=== PATIENT | female | born 1940 | race Caucasian/White ===

== ENCOUNTER 2017-04-12 16:29 | Emergency (ER) | payer MEDICARE ==
--- NOTE | 2017-04-12 17:06 | RADIOLOGY REPORT ---
Two views of the chest, without prior films for comparison, demonstrate the heart and vessels to be unremarkable. Lung sandy are clear. Incidentally noted is 25% anterior compression deformity of L1 of indeterminate age. IMPRESSION: 1. No acute cardiopulmonary abnormality is identified. 2. Compression deformity of L1 of indeterminate age. MTDD
[2017-04-12] MEDS ORDERED: IPRATROPIUM/ALBUTEROL 0.5/3 MG 3 ML AMPUL.NEB INHALATION ONE (17:11)
[2017-04-12] MEDS ORDERED: METHYLPREDNISOLONE SOD 125 MG/2 ML VIAL ONE (17:11)
[2017-04-12] MEDS ORDERED: MAGNESIUM SULFATE 1 GM/2 ML VIAL ONE (17:16)
[2017-04-12] MEDS ORDERED: KETOROLAC TROMETHAMINE 30 MG/ML VIAL ONE (17:18)
[2017-04-12] MEDS ORDERED: NORMAL SALINE 100 ML IV ONE (17:18)
--- NOTE | 2017-04-12 17:57 | ER NURSING DOCUMENTATION ---
Nurse's Notes [facility] Name:Radha Hdez Age:77 yrs Sex:Female :1940 Arrival Date:04/12/2017 Time:16:29 BedTrauma-C Private MD: Diagnosis:Esophageal Stricture;Wheezing Presentation: 04/12 16:32 Acuity: KATHERIN 2 st 16:48 Presenting complaint: Patient states: Pt swallowed a pill and it is stuck in her rh throat. Pt is able to speak in sentences and breath. Transition of care: Home. 16:48 Method Of Arrival: Private Vehicle Triage Assessment: 16:50 General: Appears in no apparent distress, Behavior is cooperative. Pain: Denies pain. rh EENT: Oral mucosa is dry. EENT: Reports foreign body in throat. Neuro: Level of Consciousness is awake, alert, obeys commands, Oriented to person, place, time, event. Cardiovascular: Capillary refill < 3 seconds. Historical: - Allergies: No known drug Allergies; - Home Meds: 1. losartan oral 2. amlodipine oral 3. Aspirin Oral 4. estrogens-methyltestosterone oral - PMHx: Hypertension; - PSHx: Hysterectomy; BLADDER SURGERY; - Tetanus: < 10 years. - Ebola Screening: : Patient negative for fever greater than or equal to 101.5 degrees Fahrenheit, and additional compatible Ebola Virus Disease symptoms. - Immunization history: Pneumococcal vaccine is up to date, Vaccine Information Sheet provided none updated, Flu Vaccine < 1 year Unable to Obtain Flu Vaccine < 1 year. - Social history: Smoking status: Patient states was never smoker of tobacco. Screenin:09 Infectious Disease Risk None. Abuse screen: Denies threats or abuse. Denies injuries rh from another. Nutritional screening: No deficits noted. Assessment: 17:09 See Triage Assessment done by same RN. rh 17:56 Reassessment: Patient states feeling better. Patient states symptoms have improved. Vital Signs: 16:25 BP 132 / 55; Pulse 74; Resp 16; Temp 98.2(TE); Pulse Ox 94% on R/A; Weight 65.77 kg; rh Height 5 ft. 6 in. (167.64 cm); Pain 0/10; 17:36 BP 156 / 70; Pulse 83; Resp 18; Pulse Ox 93% on R/A; Pain 0/10; rh 17:56 BP 147 / 86; Pulse 79; Resp 16; Pulse Ox 93% on R/A; rh 16:25 Body Mass Index 23.40 (65.77 kg, 167.64 cm) rh ED Course: 16:20 Notified ED Physician of patient's arrival and chief complaint. Dr. Monge. rh 16:30 Patient arrived in ED. jl 16:32 Chey Patel, RN is Primary Nurse. st 16:[address] 16:35 Patient moved to radiology. tt 16:52 Rafael Monge MD is Attending Physician. be 17:00 Inserted peripheral IV: 20 gauge in right antecubital area and blood collected. st 17:09 Valuables Remains with patient Patient has correct armband on for positive rh identification. Placed in gown. Bed in low position. Call light in reach. Side rails up X 1. Family accompanied patient. 17:37 Colt Villegas MD is Referral Physician. be Administered Medications: 16:59 Drug: DuoNeb (Albuterol 2.5 mg, Atrovent 0.5 mg); 6 ml; Route: Nebulizer; rh 17:08 Follow up: Response: No adverse reaction rh 16:59 Drug: Solu-MEDROL 125 mg; Route: IVP; Site: right antecubital; rh 17:35 Follow up: Response: No adverse reaction rh 17:08 Drug: Magnesium Sulfate 2 grams; Route: IVPB; Infused Over: 30 mins; Site: right rh antecubital; 17:40 Follow up: IV Status: Completed infusion; IV Intake: 100ml rh 07/06 15:05 Drug: Albuterol HFA Inhaler 2 puffs; Route: Inhalation; rh 15:05 Follow up: Response: Pharmacy closed - take home med pack rh Intake: 0705 17:40 IV: 100ml; Total: 100ml. rh Outcome: 17:38 Discharge ordered by . be 17:56 Discharged to home ambulatory, with significant other. rh 17:56 Condition: improved 17:56 Discharge Assessment: Patient awake, alert and oriented x 3. No cognitive and/or functional deficits noted. Patient verbalized understanding of disposition instructions. 17:56 Discharge instructions given to patient, significant other, Instructed on discharge instructions, follow up and referral plans. medication usage, Demonstrated understanding of instructions, medications, Prescriptions given X 2. 17:56 IV D/Joseluis 17:56 Patient left the ED. 04/13 11:32 Discharge F/U Call: Spoke with: patient. Have you filled your prescriptions? yes. 15:05 Patient left the ED. Signatures: Chey Patel, RN Rafael Matta MD MD be Terriere, Tracy tt Hofsess, Rachel Gómez Mcgovern
--- NOTE | 2017-04-12 17:57 | ER PHYSICIAN DOCUMENTATION ---
Physician Documentation [facility] Name:Radha Hdez Age:77 yrs Sex:Female :1940 Arrival Date:04/12/2017 Time:16:29 BedTrauma-C Private MD: Rafael Wade Disposition: 04/12 16:30 Critical Care: not applicable. be Disposition: 04/12/17 17:38 Discharged to Home/Self Care. Impression: Esophageal Stricture, Wheezing. - Condition is Good. - Discharge Instructions: ESOPHAGEAL SPASM, WHEEZING Adult - BRONCHOSPASM (Adult). - Prescriptions for albuterol sulfate 90 mcg/actuation Inhalation HFA aerosol inhaler - inhale 2 puff by INHALATION route every 4 hours as needed; 1 Cartridge. Prednisone 20 mg Oral Tablet - take 2 tablet by ORAL route once daily for 5 days; 10 tablet. - Medical Reconciliation form form. - Follow up: Colt Villegas MD; When: 4- 6 days; Reason: Recheck today's complaints. - Problem is new. - Symptoms have improved. HPI: 16:30 This 77 yrs old Female presents to ER via Private Vehicle with complaints of be Choked/Choking. 16:30 The patient has shortness of breath while attempting to swallow large calcium pill. be Admits to difficulty with large food boluses or pills. Onset: The symptom(s)/episode began/occurred acutely, just prior to arrival. The patient has experienced similar episodes in the past, several times, and the symptoms today are exactly the same. Historical: - Allergies: No known drug Allergies; - Home Meds: 1. losartan oral 2. amlodipine oral 3. Aspirin Oral 4. estrogens-methyltestosterone oral - PMHx: Hypertension; - PSHx: Hysterectomy; BLADDER SURGERY; - Tetanus: < 10 years. - Ebola Screening: : Patient negative for fever greater than or equal to 101.5 degrees Fahrenheit, and additional compatible Ebola Virus Disease symptoms. - Immunization history: Pneumococcal vaccine is up to date, Vaccine Information Sheet provided none updated, Flu Vaccine < 1 year Unable to Obtain Flu Vaccine < 1 year. - Social history: Smoking status: Patient states was never smoker of tobacco. ROS: 16:30 Respiratory: Positive for cough, shortness of breath, wheezing, Negative for dyspnea on be exertion, hemoptysis, sputum production. 16:30 All other systems are negative. Exam: 16:30 Constitutional: This is a well developed, well nourished patient who is awake, alert, be and in mild distress. Head/Face: Normocephalic, atraumatic. Eyes: Pupils equal round and reactive to light, extra-ocular motions intact. Lids and lashes normal. Conjunctiva and sclera are non-icteric and not injected. Cornea within normal limits. Periorbital areas with no swelling, redness, or edema. Neck: Trachea midline, no thyromegaly or masses palpated, and no cervical lymphadenopathy. Supple, full range of motion without nuchal rigidity, or vertebral point tenderness. No Meningismus. Skin: Warm, dry with normal turgor. Normal color with no rashes, no lesions, and no evidence of cellulitis. 16:30 Neuro: Awake and alert, GCS 15, oriented to person, place, time, and situation. be Cranial nerves II-XII grossly intact. Motor strength 5/5 in all extremities. Sensory grossly intact. Cerebellar exam normal. Normal gait. 16:30 Cardiovascular: Rate: normal, Rhythm: regular, Pulses: no pulse deficits are appreciated, Heart sounds: normal, normal S1and S2, no S3 or S4, Edema: is not appreciated. 16:30 Respiratory: Respirations: labored breathing, that is mild, Breath sounds: wheezing, that is moderate, is heard diffusely. Vital Signs: 16:25 BP 132 / 55; Pulse 74; Resp 16; Temp 98.2(TE); Pulse Ox 94% on R/A; Weight 65.77 kg; rh Height 5 ft. 6 in. (167.64 cm); Pain 0/10; 17:36 BP 156 / 70; Pulse 83; Resp 18; Pulse Ox 93% on R/A; Pain 0/10; rh 17:56 BP 147 / 86; Pulse 79; Resp 16; Pulse Ox 93% on R/A; rh 16:25 Body Mass Index 23.40 (65.77 kg, 167.64 cm) rh MDM: 16:30 Differential diagnosis: asthma, Bronchitis esophageal stricture, aspiration, tracheal be FB. Antibiotic administration: The patient is discharged and will get outpatient antibiotics, Levaquin. Data reviewed: vital signs, nurses notes, radiologic studies, plain films. 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 16:30 Data reviewed: and as a result, I will discharge patient, administer antibiotics be Levaquin, administer steroids, prednisone, Solumedrol, magnesium and DuoNeb. 16:52 Patient medically screened. be 17:36 Patient medically screened. be 07 09:00 Order name: [id number] EDMS 07 17:35 Order name: Iv Saline Lock; Complete Time: 17:35 rh Dispensed Medications: 16:59 Drug: DuoNeb (Albuterol 2.5 mg, Atrovent 0.5 mg); 6 ml; Route: Nebulizer; 17:08 Follow up: Response: No adverse reaction rh 16:59 Drug: Solu-MEDROL 125 mg; Route: IVP; Site: right antecubital; rh 17:35 Follow up: Response: No adverse reaction 17:08 Drug: Magnesium Sulfate 2 grams; Route: IVPB; Infused Over: 30 mins; Site: right rh antecubital; 17:40 Follow up: IV Status: Completed infusion; IV Intake: 100ml 07 15:05 Drug: Albuterol HFA Inhaler 2 puffs; Route: Inhalation; 15:05 Follow up: Response: Pharmacy closed - take home med pack Signatures: Rafael Monge MD MD be Hofsess, Rachel
[2017-04-12] MEDS ORDERED: ALBUTEROL HFA 1 INH INHALER INHALATION ONE (18:03)
== END 2017-04-13 15:06 | disposition home or self-care (01) ==
LOC: ER 16:29
DX: K22.2 Esophageal obstruction (principal); R06.2 Wheezing; R05 Cough; R06.02 Shortness of breath; I10 Essential (primary) hypertension; Z79.899 Other long term (current) drug therapy; Z79.82 Long term (current) use of aspirin
CPT/HCPCS: 71020; 94640; 96365; 96375; 99283; 99284; J1885; J2930; J3475; J7611; J7620